=== PATIENT | female | born 1980 | race Caucasian/White ===

== ENCOUNTER 2018-11-04 17:50 | Emergency (ER) | payer BC ==
[~2018-11-04] VITALS: Ht 160 cm; Wt 75.4 kg
[2018-11-04 17:57] VITALS: BP 133/82; PULSE 102; Ht 160 cm; Wt 75.4 kg
--- NOTE | 2018-11-04 19:36 | ERD ---
ER Documentation Chief Complaint Chief Complaint vag bleeding x1 hour, no pain. 18 weeks HPI 38 year old female at 18 weeks gestation presenting with vaginal bleeding that started about one hour ago. She noticed the bleeding upon wiping after urinating. the blood was mixed with mucous. No BM at that time and no rectal bleeding. no associated abdominal pain. Currently denies bleeding. No blood clots noted earlier. Denies dysuria, hematuria, fevers, chills, nausea dn vomiting, ROS All systems reviewed and are negative except as per history of present illness. Allergies Allergies: Coded Allergies: No Known Allergy (Unverified , 11/04/18) PMhx/Soc Medical and Surgical Hx: pt denies Medical Hx, pt denies Surgical Hx Hx Alcohol Use: No Hx Substance Use: No Hx Tobacco Use: No Smoking Status: Never smoker FmHx Family History: No diabetes Physical Exam Vitals Vital Signs Date Temp Pulse Resp B/P (MAP) Pulse Ox O2 O2 Flow FiO2 Time Delivery Rate 11/04/18 18 Room Air 19:44 11/04/18 98.5 102 16 133/82 99 17:57 (99) Physical Exam Const: No acute distress Head: Atraumatic Eyes: Normal Conjunctiva ENT: Normal External Ears, Nose and Mouth. Resp: Clear to auscultation bilaterally Cardio: Regular rate and rhythm, no murmurs Abd: Soft, non tender, non distended. Normal bowel sounds Pelvic: Normal external genitalia. no blood in vaginal vault. Cervix appears normal, os closed. no actuve bleeding. no CMT. uterus gravid, nontender Skin: No petechiae or rashes Back: No midline or flank tenderness Ext: No cyanosis, or edema Neur: Awake and alert Psych: Normal Mood and Affect Results 24 hrs Laboratory Tests Test 11/04/18 18:55 Urine Color COLORLESS Urine Clarity CLEAR Urine pH 7.0 Urine Specific Cameron 1.001 Urine Ketones NEGATIVE mg/dL Urine Nitrite NEGATIVE mg/dL Urine Bilirubin NEGATIVE mg/dL Urine Urobilinogen NEGATIVE mg/dL Urine Leukocyte Esterase NEGATIVE Anthony/ul Urine Microscopic RBC 0 /HPF Urine Microscopic WBC 0 /HPF Urine Bacteria FEW /HPF Urine Hemoglobin 2+ mg/dL Urine Glucose NEGATIVE mg/dL Urine Total Protein NEGATIVE mg/dl Procedures/MDM Labs and imaging reviewed: US Pelvic: normal IUP at 18 weeks 5 days. UA: microscopic hematuria, no infection MDM Patient presenting with vaginal bleeding in 2nd trimester of , now resolved. No evidence of placenta previa, abruption, subchorionic hemorrhage, vaginal laceration or any other abnormalities. Patient reassured. Spoke with her OB, Dr. Scott. Patient to followup in his office. Return precautions discussed. Departure Diagnosis: Primary Impression: Vaginal bleeding in patient at less than 20 weeks ges... Condition: Stable Patient Instructions: Vaginal Bleed in Referrals: DOCTOR,NOT ON STAFF (PCP) JIL MCKENNA MD Nov 04, 2018 19:36
[2018-11-04 19:44] VITALS: RESP 18
== END 2018-11-04 19:44 | disposition home or self-care (01) ==
LOC: FTE 17:50
DX: O20.9 Hemorrhage in early pregnancy, unspecified (principal); Z3A.18 18 weeks gestation of pregnancy
CPT/HCPCS: 76805; 81001